=== PATIENT | female | born 2005 | race Caucasian/White ===

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

== ENCOUNTER 2024-07-09 20:40 | Emergency (ER) | payer SELFPAY ==
[2024-07-09] MEDS ORDERED: MAGNES/ALUMIN/SIMET 30ML UCUP ONE (21:47)
[2024-07-09] MEDS ORDERED: LIDOCAINE VISCOUS 2% 10ML ORAL SOLN ONE (21:48)
--- NOTE | 2024-07-09 22:01 | RAD REPORT ---
Procedure: Chest Pa And Lat (2 Views) HISTORY: Cough COMPARISON: 2023 FINDINGS: The lungs appear clear of acute infiltrate. No significant pleural effusion noted. The heart is normal size. IMPRESSION: No acute abnormality is displayed.
--- NOTE | 2024-07-09 23:57 | EDPHYS ---
Physician Documentation [facility] Name: Clari Rasmussen Age: 18 yrs Sex: Female : 2005 Arrival Date: 07/09/2024 Time: 20:40 Bed 16 Private MD: ED Physician Shelli Verde HPI: 07/09 21:20 This 18 yrs old Female presents to ER via Ambulatory with complaints of Sore Throat, cp Congestion, Fever. 21:20 The patient presents with sore throat. The patient describes throat pain as constant. cp Onset: The symptoms/episode began/occurred 2 week(s) ago. Associated signs and symptoms: Pertinent positives: flu-like symptoms, fever since yesterday. 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 - Infectious Disease History:: Denies. - Social history:: Smoking status: Reported history of juuling and/or vaping. Patient/guardian denies using alcohol, street drugs. ROS: 21:25 Constitutional: Positive for body aches, chills, Negative for fever, poor PO intake, cp 21:25 Eyes: Negative for injury, pain, redness, and discharge, cp 21:25 ENT: Positive for sore throat, Negative for drainage from ear(s), difficulty swallowing, difficulty handling secretions, 21:25 Respiratory: Positive for cough, Negative for shortness of breath, wheezing, 21:25 Abdomen/GI: Negative for abdominal pain, vomiting, diarrhea, constipation, 21:25 Skin: Negative for rash, 21:25 Neuro: Negative for altered mental status, dizziness, weakness, 21:25 All other systems are negative, Exam: 21:30 Constitutional: The patient appears in no acute distress, alert, awake, non-toxic, well cp developed, well nourished, obese, 21:30 Head/Face: Normocephalic, atraumatic. cp 21:30 Eyes: Periorbital structures: appear normal, Conjunctiva: normal, no exudate, no injection, Sclera: no appreciated abnormality, Lids and lashes: appear normal, bilaterally, 21:30 ENT: External ear(s): are unremarkable, Nose: is normal, Mouth: Lips: moist, Oral mucosa: moist, Posterior pharynx: Airway: no evidence of obstruction, patent, Tonsils: no enlargement, no exudate, Uvula: midline, erythema, that is mild, exudate, is not appreciated, 21:30 Neck: ROM/movement: Meningeal signs: are not present, nuchal rigidity, is not appreciated, 21:30 Chest/axilla: Inspection: normal, 21:30 Cardiovascular: Rate: normal, 21:30 Respiratory: the patient does not display signs of respiratory distress, Respirations: normal, no use of accessory muscles, no retractions, labored breathing, is not present, Breath sounds: are clear throughout, no decreased breath sounds, no stridor, no wheezing, 21:30 Abdomen/GI: Inspection: obese Palpation: abdomen is soft and non-tender, in all quadrants, 21:30 Skin: no rash present. 21:30 Neuro: Orientation: to person, place \T\ time. Mentation: is normal, Motor: moves all fours, strength is normal, Sensation: is normal, Gait: is steady, at a normal pace, without difficulty, Vital Signs: 21:03 BP 119 / 77; Pulse 85; Resp 16 S; Temp 98.1(O); Pulse Ox 99% on R/A; Weight 86.18 kg lg3 (R); Height 4 ft. 11 in. (R); 05/03 00:25 BP 124 / 71; Pulse 80; Resp 17 S; Temp 97.8(O); Pulse Ox 100% on R/A; lg3 0502 21:03 Body Mass Index 38.37 (86.18 kg, 149.86 cm) - Percentile 98.0 % lg3 MDM: 05/02 21:15 Medical Screening Exam initiated cp 23:56 Data reviewed: vital signs, nurses notes, lab test result(s), radiologic studies, plain cp films, and as a result, I will discharge patient. 23:56 Differential diagnosis: apthous stomatitis, apthous ulcer, group A strep tonsillitis, cp influenza, peritonsillar abscess pharyngitis, retropharyngeal abcess. I considered the following discharge prescriptions or medication management in the emergency department Medications were administered in the Emergency Department. See MAR. Counseling: I had a detailed discussion with the patient and/or guardian regarding the historical points, exam findings, and any diagnostic results supporting the discharge/admit diagnosis, lab results, radiology results, to return to the emergency department if symptoms worsen or persist or if there are any questions or concerns that arise at home. Response to treatment: the patient's symptoms have mildly improved after treatment, and as a result, I will discharge patient. 07/09 21:15 Order name: Group A Streptococcus Rapid cp 07/09 22:43 Order name: Throat Culture EDMS 07/09 21:15 Order name: XRAY Chest Pa And Lat (2 Views); Complete Time: 22:36 cp Administered Medications: 21:59 Drug: GI Cocktail without - (Maalox PO 30 ml, Lidocaine Mucous Membrane 2 % 15 cm10 ml) PO once Route: PO; 07/10 00:25 Follow up: Response: No adverse reaction; Marked relief of symptoms lg3 Disposition Summary: 07/09/24 23:57 Discharge Ordered Notes: Location: Home cp Problem: new cp Symptoms: have improved cp Condition: Stable cp Diagnosis - Acute pharyngitis, unspecified cp - Cough cp Followup: cp - With: Private Physician - When: 2 - 3 days - Reason: Worsening of condition Discharge Instructions: - Discharge Summary Sheet cp - Pharyngitis cp - Sore Throat cp - Cough, Adult cp Forms: - Medication Reconciliation Form cp - Antibiotic Education cp - Prescription Opioid Use cp - Patient Portal Instructions cp - Leadership Thank You Letter cp - Work release form f Prescriptions: - Bromfed DM 2-30-10 mg/5 mL Oral syrup - administer 10 milliliter ORAL route every 6-8 hours as needed for cold cp symptoms; 240 milliliter; Refills: 0, Product Selection Permitted - Amoxicillin 875 mg Oral Tablet - take 1 tablet ORAL route every 12 hours for 10 days; 20 tablet; Refills: 0, cp Product Selection Permitted Signatures: Dispatcher [employer] EDND Marco Jimenez PA PA cp Able, Lacie, RN RN lg3 Alecia Cotter RN RN cm10
--- NOTE | 2024-07-09 23:57 | ER ---
Nurse's Notes [facility] Name: Clari Rasmussen Age: 18 yrs Sex: Female : 2005 Arrival Date: 07/09/2024 Time: 20:40 Bed 16 Private MD: Diagnosis: Acute pharyngitis, unspecified;Cough Presentation: 07/09 21:03 Chief complaint: Patient states: cough, congestion, runny nose, sore throat X2 weeks. lg3 fever yesterday. Coronavirus screen: Client denies travel out of the [place] in the last 14 days. Ebola Screen: No symptoms or risks identified at this time. Initial Sepsis Screen: Does the patient meet any 2 criteria? No. Patient's initial sepsis screen is negative. Does the patient have a suspected source of infection? No. Patient's initial sepsis screen is negative. Risk Assessment: Do you want to hurt yourself or someone else? Patient reports no desire to harm self or others. Onset of symptoms is unknown. 21:03 Method Of Arrival: Ambulatory lg3 21:03 Acuity: PATRICIA 4 lg3 Triage Assessment: 21:05 General: Appears in no apparent distress. comfortable, Behavior is calm, cooperative. lg3 Pain: Complains of pain in throat. EENT: Throat is clear Reports difficulty swallowing nasal congestion. Neuro: No deficits noted. Hogan Agitation-Sedation Scale (RASS): 0 - Alert and Calm Level of Consciousness is awake, alert, obeys commands, Oriented to person, place, time, situation. Cardiovascular: No deficits noted. Denies chest pain, shortness of breath, Capillary refill < 3 seconds Clubbing of nail beds is absent JVD is absent Patient's skin is warm and dry. Respiratory: No deficits noted. Airway is patent Respiratory effort is even, unlabored, Respiratory pattern is regular, symmetrical. GI: No deficits noted. No signs and/or symptoms were reported involving the gastrointestinal system. Abdomen is round non-distended, obese. : No signs and/or symptoms were reported regarding the genitourinary system. Derm: No deficits noted. No signs and/or symptoms reported regarding the dermatologic system. Skin is intact, is healthy with good turgor, Skin is dry, Skin is normal, Skin temperature is warm. Musculoskeletal: No deficits noted. No signs and/or symptoms reported regarding the musculoskeletal system. Circulation, motion, and sensation intact. Range of motion: intact in all extremities. 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 - Infectious Disease History:: Denies. - Social history:: Smoking status: Reported history of juuling and/or vaping. Patient/guardian denies using alcohol, street drugs. Screenin:05 [facility] ED Fall Risk Assessment (Adult) History of falling in the last 3 months, cm10 including since admission No falls in past 3 months (0 pts) Confusion or Disorientation No (0 pts) Intoxicated or Sedated No (0 pts) Impaired Gait No (0 pts) Mobility Assist Device Used No (0 pt) Altered Elimination No (0 pt) Score/Fall Risk Level 0 - 2 = Low Risk Oriented to surroundings, Maintained a safe environment, Hourly rounding (assess needs \T\ fall precautionary measures) done. Abuse screen: Denies threats or abuse. Denies injuries from another. Nutritional screening: No deficits noted. Tuberculosis screening: No symptoms or risk factors identified. Assessment: 22:04 General: Appears in no apparent distress. comfortable, Behavior is calm, cooperative. cm10 Respiratory: Airway is patent Respiratory effort is even, unlabored, Respiratory pattern is regular, symmetrical. EENT: Reports pain when swallowing. 07/10 00:25 Reassessment: Patient appears in no apparent distress at this time. Patient and/or lg3 family updated on plan of care and expected duration. Pain level reassessed. Patient is alert, oriented x 3, equal unlabored respirations, skin warm/dry/pink. Patient states feeling better. Patient states symptoms have improved. Vital Signs: 07/09 21:03 BP 119 / 77; Pulse 85; Resp 16 S; Temp 98.1(O); Pulse Ox 99% on R/A; Weight 86.18 kg lg3 (R); Height 4 ft. 11 in. (R); 07/10 00:25 BP 124 / 71; Pulse 80; Resp 17 S; Temp 97.8(O); Pulse Ox 100% on R/A; lg3 07/09 21:03 Body Mass Index 38.37 (86.18 kg, 149.86 cm) - Percentile 98.0 % lg3 ED Course: 07/09 20:53 Patient arrived in ED. kmf 21:00 Marco Jimenez PA is PHCP. cp 21:00 Shelli Verde MD is Attending Physician. cp 21:05 Triage completed. lg3 21:05 Arm band placed on right wrist. lg3 21:30 XRAY Chest Pa And Lat (2 Views) In Process Unspecified. EDMS 22:06 Patient has correct armband on for positive identification. Bed in low position. Call cm10 light in reach. 07/10 00:26 No provider procedures requiring assistance completed. Patient did not have IV access lg3 during this emergency room visit. Administered Medications: 07/09 21:59 Drug: GI Cocktail without - (Maalox PO 30 ml, Lidocaine Mucous Membrane 2 % 15 cm10 ml) PO once Route: PO; 07/10 00:25 Follow up: Response: No adverse reaction; Marked relief of symptoms lg3 Medication: 07/09 22:05 VIS not applicable for this client. cm10 Outcome: 23:57 Discharge ordered by . 07/10 00:26 Discharged to home ambulatory, lg3 Condition: stable Discharge instructions given to patient, Instructed on discharge instructions, follow up and referral plans. medication usage, Demonstrated understanding of instructions, follow-up care, medications, Prescriptions given X 2, 00:27 Patient left the ED. lg3 Signatures: Dispatcher [employer] EDNE Marco Jimenez PA PA Ryann Pinzon, RN RN lg3 Alecia Cotter RN RN cm10 Carla Zhou [facility]
[2024-07-10 01:55] VITALS: BP 124/71; TEMP 97.8; O2SAT 100
== END 2024-07-10 00:27 | disposition home or self-care (01) ==
LOC: ER 20:40
DX: J02.9 Acute pharyngitis, unspecified (principal); R05.9 Cough, unspecified
CPT/HCPCS: 36415; 71046; 87070; 99283